=== PATIENT | female | born 1960 | race Caucasian/White ===

== ENCOUNTER → 2020-02-01 15:23 | Outpatient (BNVA) | payer BC, SELFPAY | PROVIDERS: Family Provider Registered Nurse; PCP Registered Nurse; Visit Provider Nurse Practitioner Family | DX: E03.9 Hypothyroidism, unspecified (principal); R53.83 Other fatigue; D50.9 Iron deficiency anemia, unspecified; E55.9 Vitamin D deficiency, unspecified; J02.9 Acute pharyngitis, unspecified; J01.00 Acute maxillary sinusitis, unspecified | CPT/HCPCS: 82306; 83540; 84443; 85025 ==

== ENCOUNTER → 2020-02-12 11:00 | Outpatient (BNVA) | payer BC, SELFPAY | PROVIDERS: Family Provider Registered Nurse; PCP Registered Nurse; Visit Provider Nurse Practitioner Family | DX: R73.09 Other abnormal glucose (principal); E55.9 Vitamin D deficiency, unspecified; J01.90 Acute sinusitis, unspecified; B96.89 Other specified bacterial agents as the cause of diseases classified elsewhere | CPT/HCPCS: 83036 ==

== ENCOUNTER 2020-02-19 09:53 | Outpatient (CLI) | payer BC, SELFPAY ==
--- NOTE | 2020-02-19 10:01 | XR_ITS ---
WS: [id number] LUMBAR SPINE: 3 VIEWS TECHNIQUE: AP, lateral and L5-S1 spot. HISTORY: pain COMPARISON: None available. Lumbar vertebra are normally aligned. Disc spaces are well-maintained. Small endplate osteophytes. SI joints are symmetric bilaterally. No soft tissue abnormalities. Mild constipation. XR/XR lumbar spine 2-3V* [id number] IMPRESSION: Mild spondylosis with no fracture.
== END 2020-02-19 09:54 | disposition home or self-care (01) ==
LOC: RAD 09:58
PROVIDERS: Family Provider Registered Nurse; PCP Registered Nurse; Visit Provider Registered Nurse
DX: M47.896 Other spondylosis, lumbar region (principal); M54.5 Low back pain
CPT/HCPCS: 72100

== ENCOUNTER → 2020-02-25 13:45 | Outpatient (BNVA) | payer BC, SELFPAY | PROVIDERS: Family Provider Registered Nurse; PCP Registered Nurse; Visit Provider Nurse Practitioner Family | DX: R39.9 Unspecified symptoms and signs involving the genitourinary system (principal) | CPT/HCPCS: 81000 ==

== ENCOUNTER → 2020-08-02 10:38 | Outpatient (BNVA) | payer BC, SELFPAY | PROVIDERS: Family Provider Registered Nurse; PCP Registered Nurse; Visit Provider Nurse Practitioner Family | DX: E03.9 Hypothyroidism, unspecified (principal); E78.5 Hyperlipidemia, unspecified; I10 Essential (primary) hypertension; Z68.43 Body mass index [BMI] 50.0-59.9, adult; E66.01 Morbid (severe) obesity due to excess calories; E55.9 Vitamin D deficiency, unspecified | CPT/HCPCS: 80053; 80061; 82306; 84443 ==

== ENCOUNTER → 2021-01-02 11:34 | Outpatient (BNVA) | payer OTHER, SELFPAY | PROVIDERS: Family Provider Registered Nurse; PCP Registered Nurse; Visit Provider Nurse Practitioner Family | DX: I10 Essential (primary) hypertension (principal); E78.5 Hyperlipidemia, unspecified; E03.9 Hypothyroidism, unspecified; E66.01 Morbid (severe) obesity due to excess calories; Z68.41 Body mass index [BMI] 40.0-44.9, adult | CPT/HCPCS: 80053; 80061; 84443 ==

== ENCOUNTER → 2021-02-24 10:02 | Outpatient (BNVA) | payer OTHER, SELFPAY | PROVIDERS: Family Provider Registered Nurse; PCP Registered Nurse; Visit Provider Nurse Practitioner Family | DX: E03.9 Hypothyroidism, unspecified (principal) | CPT/HCPCS: 84443 ==

== ENCOUNTER → 2021-05-08 10:32 | Outpatient (BNVA) | payer OTHER, SELFPAY | PROVIDERS: Family Provider Registered Nurse; PCP Registered Nurse; Visit Provider Nurse Practitioner Family | DX: R39.9 Unspecified symptoms and signs involving the genitourinary system (principal); N39.0 Urinary tract infection, site not specified | CPT/HCPCS: 81000 ==

== ENCOUNTER 2021-05-11 19:54 | Emergency (ER) | payer OTHER, SELFPAY ==
[2021-05-11 20:02] VITALS: BP 114/81; PULSE 112; RESP 18; TEMP 36.9; O2SAT 97; BMI 49.1
--- NOTE | 2021-05-11 20:13 | XRR_ITS ---
PROCEDURE INFORMATION: Exam: XR Chest Exam date and time: 05/11/2021 8:13 PM Age: 60 years old Clinical indication: Dyspnea and shortness of breath and other: Weakness; Patient HX: Ex smoker, weakness, SOB, dyspnea, UTI since last week TECHNIQUE: Imaging protocol: XR of the chest. Views: 1 view. COMPARISON: 1. CR Chest 1 [place] [id number] 2019-11-20 21:[address] abdomen pelvis w con* [id number] 2019-11-20 21:35 FINDINGS: Lungs: Left basilar subsegmental atelectasis or mild infiltrate. Pleural spaces: Unremarkable. No pleural effusion. No pneumothorax. Heart/Mediastinum: Unremarkable. No cardiomegaly. Bones/joints: Unremarkable. XR/XR chest 1V portable [id number] IMPRESSION: Left basilar subsegmental atelectasis or mild infiltrate.
--- NOTE | 2021-05-11 20:21 | ED_ITS ---
HPI - General Adult General: Chief complaint: General Medical Stated complaint: UTI Fever Breathing difficulty Time Seen by Provider: 05/11/21 20:13 History of Present Illness: HPI narrative: 60-year-old female comes in with general malaise. Patient was diagnosed with urinary tract infection on the and was started on Macrobid for her symptoms. Since then patient has had respiratory symptoms including green snotty nose, sore throat, and some mild coughing. Patient continues to have general body aches with an occasional fever. Patient has been tested for COVID-19 and influenza and was both negative. Patient has medical condition of morbid obesity, anxiety, hyperlipidemia, hypothyroidism, and hypertension. Patient appears mildly unwell but not toxic. Patient appears in no pain. Patient does report a fever as high as 102. Patient denies any tick bites. Associated symptoms: Reports malaise Review of Systems General: Reports: 10 or more systems reviewed and unremarkable except in HPI and below Const: Reports: fever(s), fatigue and malaise PFS ED PFSH: Medical History Anxiety History of hysteroscopy with polypectomy performed by Dr. Oneal at [facility] on 07/15/2019 Hyperlipidemia Hypertension Hypothyroidism Surgical History H/O adenoidectomy 1967 H/O section 06/1998 History of skin graft right ankle History of tonsillectomy 1968 History of total abdominal hysterectomy 11/11/2019- performed by Dr. Oneal at [facility] Family History Family/Other Diabetes maternal uncle Breast cancer maternal aunt Social History Smoking and tobacco status: former smoker Second hand smoke exposure: No Alcohol intake: never Adopted: No Current occupational status: employed History of recent travel: No Current gender identity: Female Additional social history: well balanced diet Physical Exam Const: COMMON NORMALS: no acute distress and patient oriented x3 GENERAL APPEARANCE: cooperative HENMT: COMMON NORMALS: normocephalic, TM's normal bilaterally and Normal external nose present HEAD & SCALP: normal to inspection and normocephalic NOSE: Normal external nose present TYMPANIC MEMBRANE: TM's normal bilaterally MOUTH: Normal oral and palatal mucosa present Eye: GENERAL EYE: appearance normal, both eyes and all related structures Neck/C-Spine: COMMON NORMALS: full ROM Lymph: LYMPHATIC: no lymphadenopathy noted Chest: COMMONS NORMALS: normal inspection of the chest Resp: COMMON NORMALS: normal respiratory effort EFFORT & INSPECTION: Yes able to speak in complete sentences Cardio: COMMON NORMALS: regular rate and regular rhythm RATE: regular rate RHYTHM: regular rhythm GI: COMMON NORMALS: Soft to palpation PALPATION: Yes Soft to palpation and Yes Tenderness to palpation present (GI) (mild ruq tenderness) : COMMON NORMALS: Yes no CVA tenderness BLADDER/KIDNEY EXAM: Yes no CVA tenderness Back/Pelvis: COMMON NORMALS: no CVA tenderness and thoracic and lumbar spine normal to inspection Extremity: COMMON NORMALS: normal to inspection Neuro: COMMON NORMALS: patient oriented x3 and moves all extremities Psych: COMMON NORMALS: mental status grossly normal and cooperative Skin: COMMON NORMALS: no rashes or lesions noted GENERAL SKIN EXAM: no rashes or lesions noted Course ED course: 1015, reviewed patient with Dr. Ventura, attending ER physician, about patient's abnormal liver enzymes with a normal CT scan. He recommended that we go ahead and do an ultrasound to verify it although he agreed that it might just be related to her Macrobid use. Patient did report that she had increase malaise and discomfort since starting the Macrobid. Patient is alert and oriented and does report feeling somewhat better after IV fluids. Vital Signs: Vital signs: Vital Signs Temperature 99.2 F 05/11/21 22:45 Pulse Rate 107 H 05/11/21 22:24 Respiratory Rate 12 05/11/21 22:24 Blood Pressure 107/55 05/11/21 22:24 Pulse Oximetry 97 05/11/21 22:24 MDM - General Adult MDM Narrative: Medical decision making narrative: Patient came in today for complaints of nausea and feeling bad. Patient was started on Macrobid for a urinary tract infection 2 or 3 days ago and since starting the Macrobid she has felt worse. On exam patient was respirations were even lungs were clear to auscultation. Skin was warm and dry. Differential diagnosis includes sepsis, UTI, gastroenteritis. Laboratory values noted some elevation in liver enzymes, urine was a dirty catch with some white blood cells and bacteria and, blood count was normal. Due to the elevation in liver enzymes I was concerned for possible biliary obstruction or other illness and CT scan was performed. CT scan indicated no sign of obstruction of the common bile duct or significant inflammation of the gallbladder, gallbladder ultrasound was also done just noted some fat surrounding the liver. I believe patient probably just has an adverse drug effect due to the Macrobid I recommended we go ahead and stop the medicine since it made her feel poorly and elevated liver enzymes significantly even causing some increase in bilirubin. Acute hepatitis panel was added to her blood work and those will be outstanding labs. Recommend light diet and stopping the Macrobid and will change her to Keflex for the next 5 to 7 days. Patient reported understanding and agreed to plan and felt better after IV fluids. Lab Data: Labs: Lab Results 05/11/21 05/11/21 05/11/21 Range/Units 20:32 20:48 20:48 WBC 6.0 (4.0-10.0) 10^3/ uL RBC 4.61 (4.1-5.3) 10^6/u L Hgb 13.4 (11.5-15.3) g/dL Hct 41.3 (37.0-47.0) % MCV 89.6 (81-99) fL MCH 29.1 (28.0-34.0) pg MCHC 32.4 (30.0-36.0) g/dL RDW 16.0 H (12.1-15.1) % Plt Count 139 (130-400) 10^3/c mm MPV 11.7 H (7.4-10.4) fL Neut % (Auto) 86.7 % Lymph % (Auto) 3.7 % [place] % (Auto) 6.3 % Eos % (Auto) 2.0 % Baso % (Auto) 0.5 % Neut # (Auto) 5.20 (1.8-7.7) 10^3/u L Lymph # (Auto) 0.2 L (0.8-4.8) 10^3/u L [place] # (Auto) 0.4 (0.2-0.9) 10^3/u L Eos # (Auto) 0.1 (0.0-0.8) 10^3/u L Baso # (Auto) 0.0 (0.0-0.1) 10^3/u L Nucleated RBC % (a uto) 0 % Nucleated RBCs # 0.0 /100WBC Sodium 134 L (136-145) mmol/L Potassium 3.7 (3.5-5.1) mmol/L Chloride 98 (98-107) mmol/L Carbon Dioxide 20 L (22-29) mmol/L Anion Gap 19.7 H (5-19) BUN 15 (6-20) mg/dL Creatinine 0.9 (0.5-0.9) mg/dL GFR Calculation 64.3 L (90-130) mL/min Glucose 144 H (65-115) mg/dL Calculated Osmolal ity 281 L (285-295) mOsm/k g Lactate (0.5-2.2) mmol/L Calcium 8.2 L (8.5-10.5) mg/dL Total Bilirubin 2.6 H (0.15-1.2) mg/dL AST 113 H (0-32) U/L ALT 153 H (0-33) U/L Alkaline Phosphata se 180 H (35-105) IU/L Troponin T Gen 5 n g/L (0-10) ng/L C-Reactive Protein 199.6 H (0.0-4.9) mg/L Total Protein 5.8 L (6.6-8.7) g/dL Albumin 3.5 (3.5-5.2) g/dL Globulin 2.3 (1.3-4.6) g/dL Lipase 14 (13-60) U/L Urine Color Chloe (Yellow) Urine Appearance Turbid (CLEAR) Urine pH 5 (5-7) Ur Specific Gravit y 1.015 (1.005-1.030) Urine Protein 1+ H (Negative) Urine Glucose (UA) Norm (Normal) Urine Ketones 1+ H (Negative) Urine Blood Neg (Negative) Urine Nitrate Negative (Negative) Urine Bilirubin 2+ H (Negative) Urine Urobilinogen 8 H (Negative) mg/dL Ur Leukocyte Ida ase Trace H (Negative) Urine RBC 0-4 H (0-2) /hpf Urine WBC 10-15 H (0-5) /hpf Ur Squamous Epith Cells 15-25 H (0-5) /hpf Calcium Oxalate Cr ystal Trace /hpf Amorphous Sediment Not Reportable Urine Bacteria 3+ H (NONE) /hpf Urine Mucus 2+ /hpf Group A Strep Rapi d (Negative) 05/11/21 05/11/21 05/11/21 Range/Units 20:48 20:48 20:48 WBC (4.0-10.0) 10^3/ uL RBC (4.1-5.3) 10^6/u L Hgb (11.5-15.3) g/dL Hct (37.0-47.0) % MCV (81-99) fL MCH (28.0-34.0) pg MCHC (30.0-36.0) g/dL RDW (12.1-15.1) % Plt Count (130-400) 10^3/c mm MPV (7.4-10.4) fL Neut % (Auto) % Lymph % (Auto) % [place] % (Auto) % Eos % (Auto) % Baso % (Auto) % Neut # (Auto) (1.8-7.7) 10^3/u L Lymph # (Auto) (0.8-4.8) 10^3/u L [place] # (Auto) (0.2-0.9) 10^3/u L Eos # (Auto) (0.0-0.8) 10^3/u L Baso # (Auto) (0.0-0.1) 10^3/u L Nucleated RBC % (a uto) % Nucleated RBCs # /100WBC Sodium (136-145) mmol/L Potassium (3.5-5.1) mmol/L Chloride (98-107) mmol/L Carbon Dioxide (22-29) mmol/L Anion Gap (5-19) BUN (6-20) mg/dL Creatinine (0.5-0.9) mg/dL GFR Calculation (90-130) mL/min Glucose (65-115) mg/dL Calculated Osmolal ity (285-295) mOsm/k g Lactate 2.2 (0.5-2.2) mmol/L Calcium (8.5-10.5) mg/dL Total Bilirubin (0.15-1.2) mg/dL AST (0-32) U/L ALT (0-33) U/L Alkaline Phosphata se (35-105) IU/L Troponin T Gen 5 n g/L 13 H (0-10) ng/L C-Reactive Protein (0.0-4.9) mg/L Total Protein (6.6-8.7) g/dL Albumin (3.5-5.2) g/dL Globulin (1.3-4.6) g/dL Lipase (13-60) U/L Urine Color (Yellow) Urine Appearance (CLEAR) Urine pH (5-7) Ur Specific Gravit y (1.005-1.030) Urine Protein (Negative) Urine Glucose (UA) (Normal) Urine Ketones (Negative) Urine Blood (Negative) Urine Nitrate (Negative) Urine Bilirubin (Negative) Urine Urobilinogen (Negative) mg/dL Ur Leukocyte Ida ase (Negative) Urine RBC (0-2) /hpf Urine WBC (0-5) /hpf Ur Squamous Epith Cells (0-5) /hpf Calcium Oxalate Cr ystal /hpf Amorphous Sediment Urine Bacteria (NONE) /hpf Urine Mucus /hpf Group A Strep Rapi d Negative (Negative) EKG Data^: EKG 1: Attestation: I personally reviewed and interpreted this EKG as follows: (2034, EKG shows a regular tachycardic rhythm with a rate of 118 bpm, no ST elevation or ectopy is noted. No prior example is available at this time for comparison.) Computer generated interpretation: Chest X-Ray 05/11/21 20:13 IMPRESSION: Left basilar subsegmental atelectasis or mild infiltrate. Abdomen/Pelvis CT 05/11/21 21:13 IMPRESSION: 1. No acute abnormality. 2. Unchanged 1.7 cm left adrenal nodule. 3. Mild colonic diverticulosis without evidence for acute diverticulitis. Radiation Dose CTDIVOL = (mGy): DLP = 1768.86 (mGy-cm) Discharge Plan Discharge Patient Disposition: Home Clinical Impression: Elevated liver enzymes Adverse drug effect Qualifiers: Encounter type: initial encounter Qualified Code(s): T50.905A - Adverse effect of unspecified drugs, medicaments and biological substances, initial encounter Condition: Stable Prescriptions: New cephalexin 500 mg capsule 500 mg PO BID 7 Days Qty: 14 RF: 0 Discontinued nitrofurantoin monohyd/m-cryst [Macrobid] 100 mg capsule 100 mg PO Q12H 7 Days Qty: 14 RF: 0 No Action ibuprofen 800 mg tablet 800 mg PO Q8H PRN (Reason: Pain) RF: 0 pravastatin 20 mg tablet 20 mg PO DAILY Qty: 90 RF: 0 levothyroxine 125 mcg capsule 125 mcg PO DAILY Qty: 90 RF: 0 Contrave 8-90 mg tablet extended release See Rx Instructions PO BID Qty: 120 RF: 0 methylprednisolone acetate [Depo-Medrol] 80 mg/mL suspension 80 mg IM ONCE Qty: 1 RF: 0 ketorolac 30 mg/mL solution 30 mg IM ONCE Qty: 1 RF: 0 alprazolam 1 mg tablet 1 mg PO BEDTIME PRN (Reason: anxiety) RF: 0 lisinopril 10 mg tablet 10 mg PO DAILY RF: 0 Discharge Orders: Discharge ED (Routine); Ordered 05/11/21 Ordered By: Miguel Leija Referrals: Angy Carrasco FNP [Primary Care Provider] - Discharge Diet: Advance as tolerated Discharge Activity: Increase activity as tolerated Patient Instructions: Opioid Safety Activity Restrictions/Additional Instructions: Stop Macrobid, take cephalexin 500 twice a day for the next 5 to 7 days. Drink plenty of fluids. Follow-up with primary care in 1 week for recheck of lab work. Return to the emergency department for new concerns or worsening symptoms. Coding Level of Care Code ED Foundry Hand for Ashkan Hernandes Exam Comprehensive
[2021-05-11 20:48] LABS: Blood Urine Neg (Negative); Glucose Urine UA Norm (Normal); Ketones Urine 1+ (Negative); Nitrate Urine Negative (Negative); Protein Urine 1+ (Negative); Specific Gravity, Urine 1.015 (1.005-1.030); Urine Appearance Turbid (CLEAR); Urine Color Amber (Yellow); pH Urine 5 (5-7)
[2021-05-11 20:49] LABS: Add Urine Culture? No; Add Urine Microscopic? YES; Bacteria Urine 3+ /hpf; Bilirubin Urine 2+ (Negative); Calcium Oxalate Crystals Urine TRACE /hpf; Leukocyte Esterase Urine Trace (Negative); Mucus Urine 2+ /hpf; RBC Urine 0-4 /hpf (0-2); Squamous Epithelial Cell Urine 15-25 /hpf (0-5); Urobilinogen Urine 8 mg/dL (Negative)
[2021-05-11] MEDS: sodium chloride 0.9% 500 ML 999 ML IV (20:53)
[2021-05-11 20:54] LABS: Basophils % 0.5 %; Eosinophils # 0.1 10^3/uL (0.0-0.8); Hematocrit 41.3 % (37.0-47.0); Hemoglobin 13.4 g/dL (11.5-15.3); Lymphocytes # 0.2 10^3/uL (0.8-4.8); Lymphocytes % 3.7 %; Mean Corpuscular HGB Conc 32.4 g/dL (30.0-36.0); Mean Corpuscular Hemoglobin 29.1 pg (28.0-34.0); Mean Corpuscular Volume 89.6 fL (81-99); Mean Platelet Volume 11.7 fL (7.4-10.4); Monocytes # 0.4 10^3/uL (0.2-0.9); Monocytes % 6.3 %; Neutrophils % 86.7 %; Nucleated Red Blood Cells % 0 %; Platelet Count 139 10^3/cmm (130-400); Red Blood Count 4.61 10^6/uL (4.1-5.3)
[2021-05-11 21:00] LABS: Rapid Strep A Test Negative (Negative)
[2021-05-11 21:07] VITALS: BP 145/85; PULSE 113; RESP 18; O2SAT 96
[2021-05-11 21:10] LABS: Lactate (Lactic Acid level) 2.2 mmol/L (0.5-2.2)
[2021-05-11 21:11] LABS: Alanine Aminotransferase 153 U/L (0-33); Albumin Level 3.5 g/dL (3.5-5.2); Alkaline Phosphatase 180 IU/L (35-105); Aspartate Amino Transferase 113 U/L (0-32); Blood Urea Nitrogen 15 mg/dL (6-20); C Reactive Protein 199.6 mg/L (0.0-4.9); Calcium 8.2 mg/dL (8.5-10.5); Carbon Dioxide 20 mmol/L (22-29); Chloride 98 mmol/L (98-107); Globulin 2.3 g/dL (1.3-4.6); Glomerular Filtration Rate 64.3 mL/min (90-130); Glucose 144 mg/dL (65-115); Lipase 14 U/L (13-60); Osmolality Calculated 281 mOsm/kg (285-295); Sodium 134 mmol/L (136-145); Total Bilirubin 2.6 mg/dL (0.15-1.2); Total Protein 5.8 g/dL (6.6-8.7)
[2021-05-11 21:12] LABS: Anion Gap 19.7 (5-19); Potassium 3.7 mmol/L (3.5-5.1)
--- NOTE | 2021-05-11 21:13 | CTR_ITS ---
PROCEDURE INFORMATION: Exam: CT Abdomen And Pelvis With Contrast Exam date and time: 05/11/2021 9:13 PM Age: 60 years old Clinical indication: Pain and abnormal findings; Abnormal lab test; Elevated liver enzymes; Fever; Abdominal pain; Prior surgery; Surgery type: , hyst; Additional info: Elevated liver enzymes, fever TECHNIQUE: Imaging protocol: Computed tomography of the abdomen and pelvis with contrast. Radiation optimization: All CT scans at this facility use at least one of these dose optimization techniques: automated exposure control; mA and/or kV adjustment per patient size (includes targeted exams where dose is matched to clinical indication); or iterative reconstruction. Contrast material: OMNI 300; Contrast volume: 95 ml; Contrast route: INTRAVENOUS (IV); COMPARISON: 1. CT abdomen pelvis w con* [id number] 2019-11-20 21:35 2. ES Gynecology Scope Images 2019-07-15 03:25 RADIATION DOSE METRICS: Total DLP (mGy-cm): 1768.86 FINDINGS: Limitations: Limited by patient's body habitus. Lungs: Lingular subsegmental atelectasis. Liver: Normal. No mass. Gallbladder and bile ducts: Normal. No calcified stones. No ductal dilation. Pancreas: Normal. No ductal dilation. Spleen: Normal. No splenomegaly. Adrenal glands: Unchanged 1.7 cm left adrenal nodule . Kidneys and ureters: Right anterior inferior renal pole scarring with a small calcification is unchanged. Stomach and bowel: Mild colonic diverticulosis without evidence for acute diverticulitis. Appendix: No evidence of appendicitis. Intraperitoneal space: Unremarkable. No free air. No significant fluid collection. Vasculature: Unremarkable. No abdominal aortic aneurysm. Lymph nodes: Unremarkable. No enlarged lymph nodes. Urinary bladder: Unremarkable as visualized. Reproductive: Hysterectomy. Bones/joints: Unremarkable. No acute fracture. Soft tissues: Small fat protruding umbilical hernia. CT/CT abdomen pelvis w con* [id number] IMPRESSION: 1. No acute abnormality. 2. Unchanged 1.7 cm left adrenal nodule. 3. Mild colonic diverticulosis without evidence for acute diverticulitis. Radiation Dose CTDIVOL = (mGy): DLP = 1768.86 (mGy-cm)
[2021-05-11 21:14] LABS: Slide Review Slide Review Perform
[2021-05-11 21:30] LABS: Troponin T (5th) Once 13 ng/L (0-10)
[2021-05-11] MEDS: iohexol 300 mg/mL 100 mL Btl IV (21:42)
--- NOTE | 2021-05-11 22:12 | USR_ITS ---
PROCEDURE INFORMATION: Exam: US Abdomen, Limited; Right Upper Quadrant Exam date and time: 05/11/2021 10:12 PM Age: 60 years old Clinical indication: Abdominal pain; Acute; Additional info: Right upper quadrant, elevated liver enzymes TECHNIQUE: Imaging protocol: US abdomen. Real time ultrasound with image documentation. Limited exam focused on the right upper quadrant. COMPARISON: 1. CT abdomen pelvis w con* [id number] 2021-05-11 21:[address] abdomen pelvis w con* [id number] 2019-11-20 21:35 FINDINGS: Liver: Enlarged low attenuating liver, evidence of hepatic steatosis. Gallbladder: Normal. No gallstones. There is no gallbladder wall thickening. Common bile duct: Normal. No stones. No dilation. Pancreas: Visualized pancreas is unremarkable. Right kidney: Normal. No mass. No hydronephrosis. US/US abdomen limited [id number] IMPRESSION: Hepatic steatosis. Otherwise unremarkable.
[2021-05-11 22:24] VITALS: BP 107/55; PULSE 107; RESP 12; O2SAT 97
[2021-05-11 22:45] VITALS: TEMP 37.3
[2021-05-11 23:11] VITALS: BP 138/78; PULSE 108; RESP 22; TEMP 37.2; O2SAT 96
[2021-05-11 23:47] LABS: Hepatitis A Antibody IgM Non-Reactive (Nonreactive); Hepatitis B Core IgM Non-Reactive (Nonreactive); Hepatitis B Surface Antigen Non-Reactive (Nonreactive); Hepatitis C Virus Antibody Non-Reactive (Nonreactive)
== END 2021-05-11 23:21 | disposition home or self-care (01) ==
PROVIDERS: Emergency Provider Nurse Practitioner Family; PCP Nurse Practitioner Family
DX: T88.7XXA Unspecified adverse effect of drug or medicament, initial encounter (principal); T50.905A Adverse effect of unspecified drugs, medicaments and biological substances, initial encounter; R74.8 Abnormal levels of other serum enzymes; E78.5 Hyperlipidemia, unspecified; I10 Essential (primary) hypertension; Z87.891 Personal history of nicotine dependence
CPT/HCPCS: 71045; 74177; 76705; 80053; 80074; 81001; 83605; 83690; 84484; 85025; 86140; 87040; 87081; 87880; 99284; J7040; Q9967

== ENCOUNTER → 2021-05-16 09:39 | Outpatient (BNVA) | payer OTHER, SELFPAY | PROVIDERS: PCP Nurse Practitioner Family; Visit Provider Nurse Practitioner Family | DX: N39.0 Urinary tract infection, site not specified (principal); R79.82 Elevated C-reactive protein (CRP) | CPT/HCPCS: 80053; 81000; 86140 ==

== ENCOUNTER → 2021-07-07 11:54 | Outpatient (BNVA) | payer OTHER, SELFPAY | PROVIDERS: PCP Nurse Practitioner Family; Visit Provider Nurse Practitioner Family | DX: E03.9 Hypothyroidism, unspecified (principal); E78.5 Hyperlipidemia, unspecified; R74.01 Elevation of levels of liver transaminase levels; E66.01 Morbid (severe) obesity due to excess calories; Z68.43 Body mass index [BMI] 50.0-59.9, adult; F41.9 Anxiety disorder, unspecified | CPT/HCPCS: 80061; 84443 ==

== ENCOUNTER → 2021-07-13 11:39 | Outpatient (BNVA) | payer OTHER, SELFPAY | PROVIDERS: PCP Nurse Practitioner Family; Visit Provider Nurse Practitioner Family | DX: R74.8 Abnormal levels of other serum enzymes (principal); E03.9 Hypothyroidism, unspecified; F41.9 Anxiety disorder, unspecified; E07.9 Disorder of thyroid, unspecified | CPT/HCPCS: 80076 ==

== ENCOUNTER 2021-08-11 07:45 | Outpatient (CLI) | payer OTHER, SELFPAY ==
--- NOTE | 2021-08-11 07:52 | MM_ITS ---
WS: [id number] BILATERAL DIGITAL SCREENING MAMMOGRAM WITH CAD CLINICAL INFORMATION: SCREENING HISTORY: Screening mammogram. No current complaints. COMPARISON: TECHNIQUE: Bilateral CC and MLO views. FINDINGS: Fatty-replaced breasts bilaterally. No suspicious focal mass, asymmetry, calcifications, or virtualization architect ural distortion. No evidence of malignancy. A few tiny punctate calcifications. Intramammary lymph no isac along the axillary tail. MM/[place] [id number] IMPRESSION: BI-RADS: 2-Benign FOLLOW UP: 1 Year Follow-up Recommend return to annual screening mammography.
== END 2021-08-11 07:46 | disposition home or self-care (01) ==
LOC: RADSHAW 07:49
PROVIDERS: PCP Nurse Practitioner Family; Visit Provider Nurse Practitioner Family
DX: Z12.31 Encounter for screening mammogram for malignant neoplasm of breast (principal)
CPT/HCPCS: 77067

== ENCOUNTER → 2021-08-24 11:21 | Outpatient (BNVA) | payer OTHER, SELFPAY | PROVIDERS: PCP Nurse Practitioner Family; Visit Provider Nurse Practitioner Family | DX: E03.9 Hypothyroidism, unspecified (principal); R74.8 Abnormal levels of other serum enzymes; E66.01 Morbid (severe) obesity due to excess calories; Z68.43 Body mass index [BMI] 50.0-59.9, adult; B37.9 Candidiasis, unspecified | CPT/HCPCS: 80076; 84443 ==

== ENCOUNTER → 2021-09-08 08:25 | Outpatient (BNVA) | payer OTHER, SELFPAY | PROVIDERS: PCP Nurse Practitioner Family; Visit Provider Nurse Practitioner Family | DX: J02.9 Acute pharyngitis, unspecified (principal); Z20.822 Contact with and (suspected) exposure to COVID-19 | CPT/HCPCS: 87635; 87880 ==

== ENCOUNTER 2021-09-12 12:13 | Outpatient (CLI) | payer OTHER, SELFPAY ==
--- NOTE | 2021-09-12 12:18 | XR_ITS ---
WS: [id number] Chest 2 views, 09/12/2021 Clinical Data: R05.9 - Cough, unspecified Comparison: Portable chest, 05/11/2021. Findings: No nodules, masses or effusions are seen. The heart is normal. The pulmonary vascularity is not increased. No pneumothorax is seen. There is minimal bibasilar atelectasis. XR/XR chest 2V* [id number] Impression: Negative for acute cardiopulmonary disease.
[2021-09-12 12:45] LABS: Basophils % 0.4 %; Eosinophils # 0.3 10^3/uL (0.0-0.8); Eosinophils % 3.1 %; Hematocrit 37.8 % (37.0-47.0); Hemoglobin 12.2 g/dL (11.5-15.3); Lymphocytes # 2.1 10^3/uL (0.8-4.8); Lymphocytes % 22.5 %; Mean Corpuscular HGB Conc 32.3 g/dL (30.0-36.0); Mean Corpuscular Hemoglobin 29.8 pg (28.0-34.0); Mean Corpuscular Volume 92.2 fl (81-99); Mean Platelet Volume 10.1 fL (7.4-10.4); Monocytes # 0.8 10^3/uL (0.2-0.9); Monocytes % 9.1 %; Neutrophils # 5.89 10^3/uL (1.8-7.7); Neutrophils % 64.2 %; Nucleated Red Blood Cells % 0 %; Platelet Count 284 10^3/cmm (130-400); Red Cell Distribution Width 13.3 % (12.1-15.1); White Blood Count 9.2 10^3/uL (4.0-10.0)
== END 2021-09-12 12:14 | disposition home or self-care (01) ==
LOC: RAD 12:16
PROVIDERS: PCP Nurse Practitioner Family; Visit Provider Nurse Practitioner Family
DX: R05.9 Cough, unspecified (principal); R50.9 Fever, unspecified; Z79.899 Other long term (current) drug therapy
CPT/HCPCS: 36415; 71046; 85025

== ENCOUNTER → 2021-10-18 10:19 | Outpatient (BNVA) | payer OTHER, SELFPAY | PROVIDERS: PCP Nurse Practitioner Family; Visit Provider Nurse Practitioner Family | DX: E03.9 Hypothyroidism, unspecified (principal); R74.8 Abnormal levels of other serum enzymes | CPT/HCPCS: 80053; 84443 ==

== ENCOUNTER → 2021-12-13 08:58 | Outpatient (BNVA) | payer OTHER, SELFPAY | PROVIDERS: PCP Nurse Practitioner Family; Visit Provider Nurse Practitioner Family | DX: Z20.822 Contact with and (suspected) exposure to COVID-19 (principal); R05.9 Cough, unspecified | CPT/HCPCS: 87486; 87581; 87633 ==

== ENCOUNTER 2021-12-20 06:51 | Outpatient (CLI) | payer OTHER, SELFPAY ==
--- NOTE | 2021-12-20 07:01 | USCV_ITS ---
Isabell Mcdowell Age: 61 Gender: F : 1960 Exam Date: 12/20/2021 07:13 Ordering Phys: Angy Carrasco Technologist: ASA Exam Location: [facility] [place] Indication: left arm pain PROCEDURES: Venous duplex imaging was performed in only the left upper extremity. The following venous structures were evaluated: internal jugular vein, subclavian vein, axillary vein, and brachial veins. In addition, the basilic vein, cephalic vein, radial vein, and ulnar vein. Serial compression, augmentation maneuvers, and spectral Doppler flow evaluation were performed. FINDINGS: All other veins of the left upper extremity demonstrate normal flow dynamics with no evidence of deep vein thrombosis or superficial thrombophlebitis. CONCLUSIONS No evidence of thrombus of the left upper extremity veins. Beka Araiza MD (Electronically Signed) Final Date: 20 December 2021 08:55 S
== END 2021-12-20 06:52 | disposition home or self-care (01) ==
LOC: RAD 06:54
PROVIDERS: PCP Nurse Practitioner Family; Visit Provider Nurse Practitioner Family
DX: M79.89 Other specified soft tissue disorders (principal); M79.602 Pain in left arm
CPT/HCPCS: 85378; 93971

== ENCOUNTER → 2021-12-26 16:00 | Outpatient (BNVA) | payer OTHER, SELFPAY | PROVIDERS: PCP Nurse Practitioner Family; Visit Provider Nurse Practitioner Family | DX: Z20.822 Contact with and (suspected) exposure to COVID-19 (principal) | CPT/HCPCS: 87635 ==

== ENCOUNTER 2022-03-28 06:00 | Outpatient (CLI) | payer OTHER, SELFPAY | END 2022-03-28 06:01 | disposition home or self-care (01) | LOC: LAB 04-05 12:14 | PROVIDERS: PCP Nurse Practitioner Family; Visit Provider Nurse Practitioner Family | DX: E03.9 Hypothyroidism, unspecified (principal); E78.5 Hyperlipidemia, unspecified; I10 Essential (primary) hypertension | CPT/HCPCS: 80053; 80061; 84443 ==

== ENCOUNTER → 2022-04-03 10:18 | Outpatient (BNVA) | payer OTHER, SELFPAY | PROVIDERS: PCP Nurse Practitioner Family; Visit Provider Nurse Practitioner Family | DX: R73.9 Hyperglycemia, unspecified (principal); E78.5 Hyperlipidemia, unspecified; E03.9 Hypothyroidism, unspecified | CPT/HCPCS: 83036 ==

== ENCOUNTER → 2022-05-14 11:04 | Outpatient (BNVA) | payer OTHER, SELFPAY | PROVIDERS: PCP Nurse Practitioner Family; Visit Provider Nurse Practitioner Family | DX: F41.9 Anxiety disorder, unspecified (principal); E03.9 Hypothyroidism, unspecified; E78.5 Hyperlipidemia, unspecified; E07.9 Disorder of thyroid, unspecified | CPT/HCPCS: 80076; 84443 ==

== ENCOUNTER → 2022-08-21 10:33 | Outpatient (BNVA) | payer OTHER, SELFPAY | PROVIDERS: PCP Nurse Practitioner Family; Visit Provider Nurse Practitioner Family | DX: R73.9 Hyperglycemia, unspecified (principal); I10 Essential (primary) hypertension; E03.9 Hypothyroidism, unspecified; M54.50 Low back pain, unspecified | CPT/HCPCS: 80053; 83036; 84443 ==

== ENCOUNTER 2022-09-12 14:47 | Outpatient (CLI) | payer OTHER, SELFPAY ==
--- NOTE | 2022-09-12 15:10 | XRR_ITS ---
PROCEDURE INFORMATION: Exam: XR Chest Exam date and time: 09/12/2022 3:26 PM Age: 62 years old Clinical indication: Dyspnea and shortness of breath; Patient HX: Sob/dyspnea, HX of covid in jun; Additional info: R06.00 - dyspnea, unspecified TECHNIQUE: Imaging protocol: Radiologic exam of the chest. Views: 2 views. COMPARISON: CR XR chest 2V* [id number] 09/12/2021 12:25 PM FINDINGS: Lungs: No consolidation. Pleural spaces: Unremarkable. No pleural effusion. No pneumothorax. Heart/Mediastinum: No cardiomegaly. Bones/joints: No acute findings. XR/XR chest 2V* [id number] IMPRESSION: No acute findings.
== END 2022-09-12 14:48 | disposition home or self-care (01) ==
LOC: RAD 14:50
PROVIDERS: PCP Nurse Practitioner Family; Visit Provider Nurse Practitioner Family
DX: R06.00 Dyspnea, unspecified (principal)
CPT/HCPCS: 71046

== ENCOUNTER → 2022-10-16 11:20 | Outpatient (BNVA) | payer OTHER, SELFPAY | PROVIDERS: PCP Nurse Practitioner Family; Visit Provider Nurse Practitioner Family | DX: E03.9 Hypothyroidism, unspecified (principal); Z79.899 Other long term (current) drug therapy | CPT/HCPCS: 84443 ==

== ENCOUNTER → 2023-04-03 14:40 | Outpatient (BNVA) | payer MEDICAID, SELFPAY | PROVIDERS: PCP Nurse Practitioner Family; Visit Provider Nurse Practitioner Family | DX: E03.9 Hypothyroidism, unspecified (principal); I10 Essential (primary) hypertension | CPT/HCPCS: 80053; 84443 ==

== ENCOUNTER → 2023-05-30 11:28 | Outpatient (BNVA) | payer MEDICAID, SELFPAY | PROVIDERS: PCP Nurse Practitioner Family; Visit Provider Nurse Practitioner Family | DX: I10 Essential (primary) hypertension (principal) | CPT/HCPCS: 80053; 84443 ==

== ENCOUNTER → 2023-07-05 11:44 | Outpatient (BNVA) | payer MEDICAID, SELFPAY | PROVIDERS: PCP Nurse Practitioner Family; Visit Provider Internal Medicine Cardiovascular Disease | DX: R07.9 Chest pain, unspecified (principal) | CPT/HCPCS: 93005 ==

== ENCOUNTER 2023-07-12 05:49 | Day surgery (SDC) | payer MEDICAID, SELFPAY ==
[2023-07-10 10:58] VITALS: BMI 49.9
[2023-07-12 06:02] VITALS: BP 152/97; PULSE 80; RESP 18; TEMP 36.5; O2SAT 97
[2023-07-12] MEDS: sodium chloride 0.9% 1,000 ML 30 ML IV (06:08)
--- NOTE | 2023-07-12 06:40 | P.ANESASSM_ITS ---
Pre-Anesthetic Assessment Height/Weight: Height 1.65 m Weight 136.078 kg Temp Pulse Resp BP Pulse Ox O2 Del Method 97.7 F 80 18 152/97 97 Room Air 07/12/23 06:02 07/12/23 06:02 07/12/23 06:02 07/12/23 06:02 07/12/23 06:02 07/12/23 06:02 Preop Diagnosis: diarrhea abdominal bloating Operation Date: 07/12/23 07:00 Proposed Procedures p [id number] egd 20244 colon R197, R14.0(Not Applicable) - DO singh Gonzalez Colonoscopy(Not Applicable) - Delio Looney DO Familial anesthetic complications: none Was Beta Sol taken within 24 hours: N/A Last intake: Intake Last Liquid Date 07/11/23 Last Liquid Time 22:00 Last Solid Date 07/10/23 Last Solid Time 22:00 Social No alcohol and No tobacco CBD Gummies as needed for sleep Airway Submandibular: within normal limits Cervical ROM: within normal limits Mallampati: Class II Dentition: full Pulmonary Sleep Apnea CV/HEM Hypertension None reported Hepatic enlarged liver. GI Gastroesophageal Reflux Disease diarrhea nausea ( none today) abdominal bloating Metabolic Hyperlipidemia, Morbid Obesity and Thyroid Disease Musc/skel None reported Neuropsych Anxiety Anesthetic Plan ASA status: 3 Anesthesia: MAC Medications/Allergies Home Medications Medication Instructions Recorded Confirmed Last Taken Type cpap machine #1 ea 10/25/22 07/05/23 Unknown Rx fluoxetine 20 mg capsule (Prozac) 20 mg PO DAILY #90 caps 04/24/23 07/12/23 07/11/23 Rx hydrochlorothiazide 25 mg tablet 25 mg PO DAILY #90 tabs 05/30/23 07/12/23 07/11/23 Rx levothyroxine 137 mcg capsule 137 mcg PO DAILY #90 caps 06/04/23 07/12/23 07/12/23 Rx CBD Gummies 10 mg PO BEDTIME PRN Anxiety 07/05/23 07/10/23 07/09/23 History lisinopril 20 mg tablet 20 mg PO DAILY 07/05/23 07/12/23 07/12/23 History simvastatin 10 mg tablet 10 mg PO DAILY 07/05/23 07/12/23 07/11/23 History Allergies Allergy/AdvReac Type Severity Reaction Status Date / Time nitrofurantoin Allergy Severe rash Verified 07/10/23 10:56 [From Macrobid] azithromycin [From Zithromax] AdvReac rash Verified 07/10/23 10:56 [facility] Anesthesia Medical History Aftercare following surgery of the genitourinary system Anxiety Autoimmune hypothyroidism Enlargement of liver History of colon polyps Hyperlipidemia Hypertension Hypothyroidism Left lumbar pain Low back pain Post-menopausal bleeding Transaminitis Surgical History H/O adenoidectomy 1967 H/O section 06/1998 History of hysteroscopy with polypectomy performed by Dr. Oneal at [facility] on 07/15/2019 History of skin graft right ankle History of tonsillectomy 1968 History of total abdominal hysterectomy 11/11/2019- performed by Dr. Oneal at [facility] Hx of colonoscopy with polypectomy Dr. Ahmadi 2008 and 2014 Status post hysterectomy Family History Family/Other Diabetes maternal uncle Breast cancer maternal aunt Social History Smoking and tobacco status: former smoker Second hand smoke exposure: No Alcohol intake: never Substance/Drug Use: never Adopted: No Current occupational status: employed Do you think of yourself as: Straight/Heterosexual Current gender identity: Female Additional social history: well balanced diet Data Anesthesia Cardiac Studies: No Data to Display
--- NOTE | 2023-07-12 06:56 | PM.HP ---
Providers/Chief Complaint Primary Care Provider: KAYLEEN Aquino History of Present Illness Isabell Mcdowell is a 62 year old female Medications/Allergies Home Medications Medication Instructions Recorded Confirmed Last Taken Type cpap machine #1 ea 10/25/22 07/05/23 Unknown Rx fluoxetine 20 mg capsule (Prozac) 20 mg PO DAILY #90 caps 04/24/23 07/12/23 07/11/23 Rx hydrochlorothiazide 25 mg tablet 25 mg PO DAILY #90 tabs 05/30/23 07/12/23 07/11/23 Rx levothyroxine 137 mcg capsule 137 mcg PO DAILY #90 caps 06/04/23 07/12/23 07/12/23 Rx CBD Gummies 10 mg PO BEDTIME PRN Anxiety 07/05/23 07/10/23 07/09/23 History lisinopril 20 mg tablet 20 mg PO DAILY 07/05/23 07/12/23 07/12/23 History simvastatin 10 mg tablet 10 mg PO DAILY 07/05/23 07/12/23 07/11/23 History Allergies Allergy/AdvReac Type Severity Reaction Status Date / Time nitrofurantoin Allergy Severe rash Verified 07/10/23 10:56 [From Macrobid] azithromycin [From Zithromax] AdvReac rash Verified 07/10/23 10:56 PFSH Acute PFSH: Medical History Aftercare following surgery of the genitourinary system Anxiety Autoimmune hypothyroidism Enlargement of liver History of colon polyps Hyperlipidemia Hypertension Hypothyroidism Left lumbar pain Low back pain Post-menopausal bleeding Transaminitis Surgical History H/O adenoidectomy 1967 H/O section 06/1998 History of hysteroscopy with polypectomy performed by Dr. Oneal at [facility] on 07/15/2019 History of skin graft right ankle History of tonsillectomy 1968 History of total abdominal hysterectomy 11/11/2019- performed by Dr. Oneal at [facility] Hx of colonoscopy with polypectomy Dr. Ahmadi 2008 and 2014 Status post hysterectomy Family History Family/Other Diabetes maternal uncle Breast cancer maternal aunt Social History Smoking and tobacco status: former smoker Second hand smoke exposure: No Alcohol intake: never Substance/Drug Use: never Adopted: No Current occupational status: employed Do you think of yourself as: Straight/Heterosexual Current gender identity: Female Additional social history: well balanced diet Vitals/I&O/Wt Last Vital Signs Temp 97.7 F 07/12/23 06:02 Pulse 80 07/12/23 06:02 Resp 18 07/12/23 06:02 BP 152/97 07/12/23 06:02 Pulse Ox 97 07/12/23 06:02 O2 Del Method Room Air 07/12/23 06:02 Weight last 48 hrs Weight 300 lb A&P Assessment and plan (1) Bloating: (2) Diarrhea: (3) Colon cancer screening: Plan EGD and colonoscopy Attestations Medical Necessity Statement*: Home Coding Level of Care Code Acute Code for Chg Fwd Diagnoses Bloating R14.0 Diarrhea R19.7 Colon cancer screening Z12.11
[2023-07-12 08:00] VITALS: BP 123/67; PULSE 71; RESP 18; TEMP 36.1; O2SAT 100
[2023-07-12 08:10] VITALS: BP 112/78; PULSE 67; RESP 16; O2SAT 100
--- NOTE | 2023-07-12 13:04 | ANE.PACU2 ---
Inpatient post-anesthesia follow up: Airway intact: Yes Vital signs: Temperature 97 F Pulse Rate 67 Respiratory Rate 16 Blood Pressure 112/78 Pulse Oximetry 100 Oxygen Delivery Me thod Room Air Oxygen Flow Rate Fraction of Inspir ed Oxygen Hydration adequate: Yes Nausea and vomiting: No Pain level: 2 Mental status: Baseline
== END 2023-07-12 08:30 | disposition home or self-care (01) ==
PROVIDERS: PCP Nurse Practitioner Family; Visit Provider Surgery
PROC: 0DJ08ZZ Inspection of Upper Intestinal Tract, Via Natural or Artificial Opening Endoscopic (ICD-10-PCS; CPT 43235; principal; 2023-07-12 07:00)
PROC: 0DJD8ZZ Inspection of Lower Intestinal Tract, Via Natural or Artificial Opening Endoscopic (ICD-10-PCS; CPT 45378; 2023-07-12 07:00)
DX: Z86.010 Personal history of colon polyps (principal); K57.30 Diverticulosis of large intestine without perforation or abscess without bleeding; D12.5 Benign neoplasm of sigmoid colon; K29.50 Unspecified chronic gastritis without bleeding; R14.0 Abdominal distension (gaseous); R19.7 Diarrhea, unspecified; Z87.890 Personal history of sex reassignment; K21.9 Gastro-esophageal reflux disease without esophagitis; I10 Essential (primary) hypertension; E78.5 Hyperlipidemia, unspecified; E03.9 Hypothyroidism, unspecified; E66.01 Morbid (severe) obesity due to excess calories; Z68.42 Body mass index [BMI] 45.0-49.9, adult
CPT/HCPCS: 43239; 45380; 45385; 82274; 83630; 87493; 87506; 88305; 88342; J2704; J7030

== ENCOUNTER 2023-08-30 09:36 | Outpatient (CLI) | payer MEDICAID, SELFPAY ==
--- NOTE | 2023-08-30 10:00 | NM_ITS ---
WS: [id number] NUCLEAR MEDICINE HIDA SCAN WITH GALLBLADDER EJECTION FRACTION HISTORY: abdominal pain COMPARISON: 05/11/2021 TECHNIQUE: The patient was intravenously injected with 7.8 mCi of TC99m Mebrofenin. Immediate imaging over the right upper quadrant was followed by 5 minute image and additional images for a total of 60 minutes. Normal uptake of radiotracer throughout the liver. Activity identified in the gallbladder at 50 minutes and well distended by 60 minutes. Activity in the proximal small bowel was seen by 15 minutes. Good washout of the radiotracer from the liver by 60 minutes. The patient then drank 8 ounces of Ensure Plus. Ejection fraction at 60 minutes was 87%. Normal GB ej ection fraction is 35-75%. Post fatty meal symptoms: None. IMPRESSION: 1. Normal HIDA scan. 2. Normal gallbladder ejection fraction.
== END 2023-08-30 09:37 | disposition home or self-care (01) ==
LOC: RAD 09:36
PROVIDERS: PCP Nurse Practitioner Family; Visit Provider Surgery
DX: R10.9 Unspecified abdominal pain (principal)
CPT/HCPCS: 78227; A9537

== ENCOUNTER 2024-07-02 10:01 | Outpatient (CLI) | payer BC, MEDICAID, SELFPAY ==
--- NOTE | 2024-07-02 10:05 | MM_ITS ---
WS: [id number] BILATERAL SCREENING DIGITAL TOMOSYNTHESIS MAMMOGRAM WITH CAD HISTORY: SCREENING COMPARISON: 08/11/2021, 11/11/2018 Bilateral CC and MLO views with tomosynthesis and synthetic mammography submitted. Computer aided det ection analyzed. Breast composition: There are scattered areas of fibroglandular density. No suspicious masses, microc alcifications or architectural distortion. Stable intramammary lymph nodes and calcifications. MM/[place] [id number] IMPRESSION: BI-RADS: 2-Benign FOLLOW UP: 1 Year Follow-up
== END 2024-07-02 10:02 | disposition home or self-care (01) ==
LOC: RAD 10:01
PROVIDERS: PCP Nurse Practitioner Family; Visit Provider Family Medicine
DX: Z12.31 Encounter for screening mammogram for malignant neoplasm of breast (principal)
CPT/HCPCS: 77063; 77067